=== PATIENT | female | born 1975 | race African-American/Black ===

== ENCOUNTER → 2024-10-08 | Emergency (ER) | payer BC ==
[~2024-10-08] VITALS: Ht 165.1 cm; Wt 88.0 kg
[2024-10-08 11:55] VITALS: O2SAT 100
[2024-10-08 12:03] VITALS: BP 154/90; PULSE 93; RESP 16; TEMP 36.9; O2SAT 100
== END ==
LOC: ER 11:53
DX: N89.8 Other specified noninflammatory disorders of vagina (principal); E11.9 Type 2 diabetes mellitus without complications; I10 Essential (primary) hypertension
CPT/HCPCS: 99281